=== PATIENT | female | born 1995 | race Caucasian/White ===

== ENCOUNTER 2020-04-17 18:29 | Emergency (ER) | payer OTHER ==
[~2020-04-17] VITALS: Ht 177.8 cm; Wt 149.7 kg
[2020-04-17] MEDS ORDERED: LATUDA20 MG PO (18:41)
[2020-04-17] MEDS ORDERED: ADDERALL 10 MG10 MG PO (18:41)
[2020-04-17] MEDS ORDERED: PROPANTHELINE B15 MG PO (18:41)
[2020-04-17] MEDS ORDERED: TYLENOL WITH CO1 TA1 PO (19:25)
[2020-04-17 20:09] VITALS: BP 132/89
--- NOTE | 2020-04-18 10:13 | EKG ---
[place] [address] ELECTROCARDIOGRAM REPORT Name: VERENICE MORELAND Room: [facility]#: [id number] Admission: 04/17/20 Attend Phys: Discharge: 04/17/20 Date of : [birth year] Date of Service: 04/17/201942 Report #: [id number] THIS REPORT FOR: //name// [facility] ED Test Date: 2020-04-17 Test Time: 19:43:42 Pat Name: VERENICE MORELAND Department: Room: Gender: [employer]er: SILVANO : 1995 Requested By: Swetha Strong Order Number: [id number] MD: Jose Armando Avery Measurements Intervals [place] Rate: 118 P: 37 [place]: 154 QRS: 48 QRSD: 85 T: 24 QT: 324 QTc: 455 Interpretive Statements Sinus tachycardia Baseline wander in lead(s) III No previous ECG available for comparison Electronically Signed On 04-18-2020 10:11:07 CDT by Jose Armando Avery [email or web address] <ELECTRONICALLY SIGNED> By: Jose Armando Avery MD, [facility] [id number] Jose Armando Avery MD, [facility] /EPI
== END 2020-04-17 20:09 | disposition home or self-care (01) ==
LOC: M.ERS 18:29
DX: M25.562 Pain in left knee (principal); R00.0 Tachycardia, unspecified; F31.9 Bipolar disorder, unspecified; F41.9 Anxiety disorder, unspecified